=== PATIENT | male | born 1955 | race Caucasian/White ===

== ENCOUNTER → 2020-06-05 14:44 | Outpatient (CLI) | payer OTHER, SELFPAY ==
--- NOTE | 2020-06-05 14:49 | ECHOD_ITS ---
Reason For Study: MITRAL REGURGITATION Procedure This was a 2D Doppler, Color Flow transthoracic echocardiogram. Exam performed in department. Left Ventricle Normal LV size. Severe concentric left ventricular hypertrophy. Left ventricular systolic function is normal. The estimated ejection fraction is 55 %. Stage 1 diastolic dysfunction. No regional wall motion abnormalities noted. Right Ventricle Normal RV size. Normal systolic function. Atria Normal left atrium. Normal right atrium. Mitral Valve Normal mitral valve. Tricuspid Valve Normal tricuspid valve. Mild (1+) tricuspid valve insufficiency. Pulmonary artery systolic pressure is 28 mmHg. Aortic Valve Trisinus/trileaflet aortic valve. Mild focal aortic valve calcification. Pulmonic Valve Normal pulmonic valve. Great Vessels Moderately dilated aortic root. The pulmonary artery is normal size. Normal inferior vena cava. Pericardium/Pleural No pericardial effusion. MMode/2D Measurements & Calculations LVIDd: 5.6 cm IVSd: 1.8 cm Ao root diam: 4.7 cm LVIDs: 3.9 cm LVPWd: 1.5 cm RVDd: 3.8 cm FS: 29.0 % LAV(MOD-bp): 64.8 ml LA A4 area: 19.8 cm2 LA dimension(2D): 4.0 cm LAV(MOD-bp) Indexed: 27.1 ml/m2 LAV(MOD-sp2): 66.9 ml LAV(MOD-sp4): 58.2 ml RA A4 area: 15.9 cm2 Time Measurements MV dec time: 0.28 sec Doppler Measurements & Calculations MV E max griffin: 62.0 cm/sec Lat Peak E' Griffin: 4.8 cm/sec Med Peak E' Griffin: 5.2 cm/sec MV A max griffin: 92.2 cm/sec E/E' lat: 12.9 E/E' med: 11.8 MV E/A: 0.67 Ao V2 max: 160.3 cm/sec LV V1 max: 122.7 cm/sec PA V2 max: 87.8 cm/sec Ao max P.3 mmHg LV V1 max P.0 mmHg TR max griffin: 247.0 cm/sec TR max P.4 mmHg Interpretation Summary Normal LV size. Left ventricular systolic function is normal. The estimated ejection fraction is 55 %. Stage 1 diastolic dysfunction. Severe concentric left ventricular hypertrophy. Ordering Physician: Radames Maza Referring Physician: Radames Maza Performed By: Sherry Tucker RDCS, RVT
== END ==
PROVIDERS: PCP Nurse Practitioner Family; Referring Provider Nurse Practitioner Family; Visit Provider Nurse Practitioner Family
DX: I34.0 Nonrheumatic mitral (valve) insufficiency (principal)
CPT/HCPCS: 93306

== ENCOUNTER 2024-04-28 06:12 | Emergency (ER) | payer MEDICARE, SELFPAY ==
[2024-04-28 06:12] VITALS: BP 145/94; PULSE 76; RESP 16; TEMP 36.1; O2SAT 94; BMI 31.8
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
[2024-04-28 06:52] LABS: Bacteria 0 SEEN /hpf (None Seen); Mucous, Urine 0 SEEN /hpf (<or=2+); Red Blood Cells-Urine 0 SEEN /hpf (0-5); Squamous Epithelial Cells - UA 0 SEEN /hpf (0-5); White Blood Cells 0 SEEN /hpf (0-5)
[2024-04-28 06:55] LABS: Color, Urine Yellow (Yellow); Glucose, Dipstick Normal (Normal); Ketone-Dipstick Negative (Negative); Leukocyte Esterase-Dipstick Negative /ul (Negative); Nitrite-Dipstick Negative (Negative); Occult Blood-Urine 10 /ul (Negative); Protein-Dipstick Negative (Negative); Urine Bilirubin Dipstick Negative (Negative); Urine Clarity Clear (Clear); Urine Urobilinogen Normal (Normal)
[2024-04-28 07:12] VITALS: BP 158/137; PULSE 75; RESP 17; O2SAT 97
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
[2024-04-28 08:00] VITALS: BP 144/107; PULSE 76; RESP 18; O2SAT 97
[2024-04-28 08:40] VITALS: BP 144/107; PULSE 76; RESP 18; TEMP 36.8; O2SAT 97
--- NOTE | 2024-04-28 08:41 | ED.RN ---
PT ADVISED HIS BP HAS BEEN ELEVATED. PT TOOK HIS BP MEDS THIS MORNING. DR LUJAN MADE AWARE. PT ADVISED TO MONITOR HIS BP TODAY AND FOLLOW UP WITH PCP
== END 2024-04-28 08:42 | disposition home or self-care (01) ==
PROVIDERS: Emergency Provider Emergency Medicine; PCP Nurse Practitioner Family; Visit Provider Emergency Medicine
DX: S20.20XA Contusion of thorax, unspecified, initial encounter (principal); I10 Essential (primary) hypertension; S16.1XXA Strain of muscle, fascia and tendon at neck level, initial encounter; F17.210 Nicotine dependence, cigarettes, uncomplicated; Z79.899 Other long term (current) drug therapy; E66.9 Obesity, unspecified; V43.52XA Car driver injured in collision with other type car in traffic accident, initial encounter
CPT/HCPCS: 70450; 71046; 72125; 81001; 99282